=== PATIENT | female | born 1995 | race Caucasian/White ===

== ENCOUNTER 2023-06-12 00:10 | Day surgery (SDC) | payer OTHER ==
[2023-06-12] MEDS ORDERED: hydrALAZINE 20 MG/ML VIAL SLOW IVP PRN (01:23)
[2023-06-12 02:22] VITALS: BMI 27.7
== END 2023-06-12 01:30 | disposition home or self-care (01) ==
LOC: CSHLD/OP 00:10
PROVIDERS: ATTEND Family Medicine
DX: O47.1 False labor at or after 37 completed weeks of gestation (principal); Z79.899 Other long term (current) drug therapy; Z3A.38 38 weeks gestation of pregnancy
CPT/HCPCS: 99282

== ENCOUNTER 2023-06-18 19:00 | Inpatient (IN) | payer OTHER ==
[~2023-06-18 19:00] MED LIST: Bupivacaine 0.25% HCL 30 ML VIAL ONE
[2023-06-18 22:56] VITALS: BMI 35.1
[2023-06-18] MEDS ORDERED: Ondansetron PF 4 MG/2 ML Vial IVP PRN (23:19)
[2023-06-18] MEDS ORDERED: NS w/ Oxytocin 30 units 500 ML IV SCH ×3 (23:19)
[2023-06-18] MEDS ORDERED: Promethazine HCl 25 MG/ML VIAL IM PRN (23:19)
[2023-06-18] MEDS ORDERED: hydrALAZINE 20 MG/ML VIAL SLOW IVP PRN (23:19)
[2023-06-18] MEDS ORDERED: Lidocaine 1% (PF) 30 ML VIAL SC PRN (23:19)
[2023-06-18] MEDS ORDERED: Diphenoxylate HCl/Atropine Tablet PO PRN (23:19)
[2023-06-18] MEDS ORDERED: fentaNYL 50 mcg/mL 1 mL Vial SLOW IVP PRN (23:19)
[2023-06-18] MEDS ORDERED: Misoprostol 200 MCG TAB PR PRN (23:19)
[2023-06-18] MEDS ORDERED: Methylergonovine 0.2 MG/ML VIAL IM PRN (23:19)
[2023-06-18] MEDS ORDERED: HYDROcodone/Acetaminophen 5/325 mg Tablet PO PRN (23:19)
[2023-06-18] MEDS ORDERED: Ibuprofen 800 MG TAB PO PRN (23:19)
[2023-06-18] MEDS ORDERED: Carboprost 250 MCG/ML AMP IM PRN (23:19)
[2023-06-18] MEDS ORDERED: Acetaminophen 500 MG TAB PO PRN (23:19)
[2023-06-18] MEDS ORDERED: Tranexamic Acid 1,000 MG/10 ML VIAL IVP PRN (23:19)
[2023-06-19] LABS: Hematocrit 30.7 % (34.9-44.5); Hemoglobin 9.7 g/dL (12.0-15.5); Mean Corpuscular HGB CONC 31.6 g/dL (32.0-36.0); Mean Corpuscular Hemoglobin 25.1 pg (27.0-33.0); Mean Corpuscular Volume 79.3 fl (81.6-98.3); Mean Platelet Volume 10.7 fl (7.4-10.4); Platelet Count 182 10x3/uL (150-450); RBC Distribution Width 15.7 % (11.5-14.5); Red Blood Cell (RBC) Count 3.87 10x6/uL (3.90-5.03); White Blood Cell (WBC) Count 11.4 10x3/uL (3.5-10.5)
[2023-06-19 00:34] LABS: HBSAg Index 0.15 S/CO (0-0.99); Hep B Surf Ag - L&D Non-Reactive S/CO (NonReactive); Syphilis Antibody Nonreactive (Nonreactive); Syphilis Antibody Index 0.04 S/CO (<1.00 Non-Reactive)
[2023-06-19] MEDS: Misoprostol 100 MCG TAB VAG SCH ×2 (05:13→19:03)
[2023-06-19] MEDS ORDERED: fentaNYL/Ropivacaine Epidural 100 ML ONE (09:46)
[2023-06-19] MEDS ORDERED: diphenhydrAMINE 50 MG/ML VIAL IVP PRN (11:39)
[2023-06-19] MEDS ORDERED: Moisturizing Cream (Eucerin) 113 GM JAR TOP PRN (11:39)
[2023-06-19] MEDS ORDERED: Acetaminophen 325 MG TAB PO PRN (11:39)
[2023-06-19] MEDS ORDERED: Promethazine HCl 25 MG/ML VIAL IM PRN ×2 (11:39→20:19)
[2023-06-19] MEDS ORDERED: Lactated Ringer's 500 ML IV PRN (11:39)
[2023-06-19] MEDS ORDERED: Ondansetron PF 4 MG/2 ML Vial IVP PRN ×2 (11:39→20:19)
[2023-06-19] MEDS ORDERED: ePHEDrine Sulfate 50 MG/10 ML VIAL SLOW IVP PRN (11:39)
[2023-06-19] MEDS ORDERED: Naloxone HCl 0.4 mg/ml Vial IVP PRN ×2 (11:39)
[2023-06-19] MEDS ORDERED: fentaNYL 2 mcg/Ropivacaine 0.2% Epidural 100 ML CADD EPIDURAL SCH (11:45)
[2023-06-19] MEDS ORDERED: Communication Order-Pharmacy FS SCH (11:45)
[2023-06-19] MEDS: Lactated Ringer's 1,000 ML IV SCH (19:03)
[2023-06-19] MEDS ORDERED: Bisacodyl 10 MG SUPP PR PRN (20:19)
[2023-06-19] MEDS ORDERED: hydrALAZINE 20 MG/ML VIAL SLOW IVP PRN (20:19)
[2023-06-19] MEDS ORDERED: Milk Of Magnesia 30 ML UDCUP PO PRN (20:19)
[2023-06-19] MEDS ORDERED: diphenhydrAMINE 25 MG CAP PO PRN (20:19)
[2023-06-19] MEDS ORDERED: NS w/ Oxytocin 30 units 500 ML IV SCH (20:19)
[2023-06-19] MEDS ORDERED: Boostrix 0.5 ML (Tdap) VIAL (>/=7 yrs of age) IM ONE (20:19)
[2023-06-19] MEDS ORDERED: Lanolin Ointment 7 GM TUBE TOP PRN (20:19)
[2023-06-19] MEDS ORDERED: Benzocaine-Menthol 82.5 ML CAN TOP PRN (21:05)
[2023-06-19] MEDS: Docusate 100 MG CAP PO SCH (22:09)
[2023-06-19] MEDS: Ibuprofen 800 MG TAB PO SCH (23:04)
[2023-06-20] MEDS: Ibuprofen 800 MG TAB PO SCH ×3 (05:22→21:20)
[2023-06-20] MEDS: Docusate 100 MG CAP PO SCH ×2 (07:55→21:20)
[2023-06-20] MEDS: Ferrous Sulfate 325 MG TAB PO SCH ×2 (07:55→17:05)
[2023-06-20] MEDS: Prenatal Vitamin 1 TAB PO SCH (07:55)
[2023-06-20] MEDS: HYDROcodone/Acetaminophen 5/325 mg Tablet PO PRN (11:56)
[2023-06-21] MEDS: HYDROcodone/Acetaminophen 5/325 mg Tablet PO PRN (01:52)
[2023-06-21] MEDS: Ibuprofen 800 MG TAB PO SCH ×3 (05:41→22:00)
[2023-06-21] MEDS: Prenatal Vitamin 1 TAB PO SCH (09:16)
[2023-06-21] MEDS: Docusate 100 MG CAP PO SCH ×2 (09:16→22:00)
[2023-06-21] MEDS: Ferrous Sulfate 325 MG TAB PO SCH ×2 (09:17→18:42)
[2023-06-22] MEDS: Ibuprofen 800 MG TAB PO SCH ×2 (05:06→14:30)
[2023-06-22 07:56] VITALS: BP 121/66; TEMP 98.2
[2023-06-22] MEDS: Ferrous Sulfate 325 MG TAB PO SCH (08:19)
[2023-06-22] MEDS: Docusate 100 MG CAP PO SCH (08:19)
[2023-06-22] MEDS: Prenatal Vitamin 1 TAB PO SCH (08:19)
[2023-06-22] MEDS: HYDROcodone/Acetaminophen 5/325 mg Tablet PO PRN (12:15)
== END 2023-06-22 16:20 | disposition home or self-care (01) | DRG 807 ==
LOC: CSHLD 21:59 → CSHPP 06-19 20:05
PROVIDERS: ADMIT Family Medicine; ATTEND Family Medicine
PROC: 10E0XZZ Delivery of Products of Conception, External Approach (ICD-10-PCS; principal; 2023-06-19)
PROC: 0KQM0ZZ Repair Perineum Muscle, Open Approach (ICD-10-PCS; 2023-06-19)
PROC: 10907ZC Drainage of Amniotic Fluid, Therapeutic from Products of Conception, Via Natural or Artificial Opening (ICD-10-PCS; 2023-06-19)
PROC: 3E0P7VZ Introduction of Hormone into Female Reproductive, Via Natural or Artificial Opening (ICD-10-PCS; 2023-06-19)
DX: O70.1 Second degree perineal laceration during delivery (principal); Z37.0 Single live birth; Z3A.39 39 weeks gestation of pregnancy; Z88.0 Allergy status to penicillin
CPT/HCPCS: 36415; 51702; 85027; 86780; 86850; 86900; 86901; 87340; J2405; J3010; S0020